=== PATIENT | female | born 1965 | race American Indian/Alaskan Native ===

== ENCOUNTER 2016-07-02 16:17 | Outpatient (CLI) | payer OTHER ==
--- NOTE | 2016-07-03 10:20 | Magnetic Resonance Report ---
MR UPPER EXTREMITY JOINT RIGHT WITHOUT CONTRAST: HISTORY: Right shoulder pain. TECHNIQUE: Multisequence, multiplanar MRI with and without fat suppression. COMPARISON: None at this facility. FINDINGS: There is a large joint effusion with extension to the subscapular recess, subdeltoid bursa and subacromial bursa. [id number] hypertrophic osteoarthritic changes are identified at the AC joint. There is inferior spurring with mass effect on the musculotendinous junction of the supraspinatus tendon. Impingement syndrome is likely present. There are mild osteoarthritic changes at the glenohumeral joint. No evidence for fracture, dislocation, ligamentous injury or bone lesion. A large full thickness tear is identified in the distal supraspinatus tendon measuring up to 1.1 cm in diameter. This tear is approximately 1 cm from the insertion site of the supraspinatus tendon on the proximal humerus. This tear may also extend to involve the anterior fibers of the infraspinatus tendon. The subscapularis tendon is intact but slightly thickened suggesting a mild degree of tendinosis. The teres minor tendon and posterior fibers of the infraspinatus tendon are normal. A complete tear of the long head of the biceps tendon is also identified approximately 1 cm from its attachment on the superior labrum. The superior labrum is abnormal and appears fragmented. A SLAP lesion is suspected, likely type II SLAP lesion. The remainder of the labrum is grossly normal. The middle and inferior glenohumeral ligaments are intact. The superior glenohumeral ligament is not confidently identified. IMPRESSION: Large full-thickness tear in the distal supraspinatus tendon, as detailed above. Complete rupture of the long head of the biceps tendon 1 cm from its attachment site on the superior labrum. A SLAP lesion is also suspected. Large joint effusion. Osteoarthritic changes with suggestion of impingement syndrome.
== END 2016-07-02 16:18 | disposition home or self-care (01) ==
LOC: MRI 16:17
PROVIDERS: ATTEND Physical Medicine & Rehabilitation
DX: S46.811A Strain of other muscles, fascia and tendons at shoulder and upper arm level, right arm, initial encounter (principal); M25.411 Effusion, right shoulder; X58.XXXA Exposure to other specified factors, initial encounter; Y93.89 Activity, other specified; Y92.89 Other specified places as the place of occurrence of the external cause; Y99.8 Other external cause status